=== PATIENT | male | born 1995 | race Caucasian/White ===

== ENCOUNTER 2018-01-10 20:27 | Emergency (ER) | payer OTHER ==
[2018-01-10 20:33] VITALS: RESP 18
--- NOTE | 2018-01-10 21:30 | EDPHY ---
H & P Time Seen by Provider: 01/10/18 20:55 HPI/ROS: CHIEF COMPLAINT: Abscess HISTORY OF PRESENT ILLNESS: 22-year-old male presents to the emergency department with drainage from a wound in the upper part of his buttock. Patient states that he fell snowboarding 2 days ago and since that time has developed some drainage. The patient denies any problems with urination. Denies any issues with bowel movements. No fevers or chills. No abdominal pain. He has never had this in the past. ROS: No fevers, chills, abdominal pain. Past Medical/Surgical History: Negative Social History: Single Smoking Status: Never smoked Physical Exam: On examination the patient is afebrile. No apparent distress. On examination the patient has evidence of pilonidal cyst. There is a small opening where purulent drainage was expressed. No sounding redness or signs of cellulitis. Minimally tender to palpate. No palpable bony tenderness. Constitutional: Initial Vital Signs Temperature (C) 36.7 C 01/10/18 20:30 Heart Rate 87 01/10/18 20:30 Respiratory Rate 18 01/10/18 20:30 Blood Pressure 141/77 H 01/10/18 20:30 O2 Sat (%) 96 01/10/18 20:30 O2 Delivery Mode Room Air Allergies/Adverse Reactions: No Known Allergies Allergy (Unverified 01/10/18 20:30) Home Medications: Medication Instructions Recorded Cephalexin [Keflex] 500 mg PO QID #28 cap 01/10/18 MDM/Departure - MDM Procedures: Procedure: Abscess drainage. The patient's abscess was located on the buttock. Risks, benefits, alternatives discussed with the patient and consent obtained. The abscess was already draining and just required some palpation to express further purulent drainage. No packing required. The patient tolerated the procedure well. The procedure was performed by myself. ED Course/Re-evaluation: 22-year-old male presents with pilonidal cyst. Purulent drainage expressed. Patient will be started on Keflex. He was encouraged and soak the area. Packing was not placed. - Depart Disposition: Home, Routine, Self-Care Clinical Impression: Pilonidal cyst with abscess Condition: Good Instructions: Pilonidal Cyst (ED) Additional Instructions: Keflex 500 mg 4 times daily for 1 week. Soak area in warm water as discussed for 15-20 minutes every 2-3 hours especially today and tomorrow. Apply antibiotic ointment such as Neosporin or bacitracin. Return to the emergency department if you develop a fever, increasing pain, or any other concerns. Prescriptions: Cephalexin [Keflex] 500 mg PO QID #28 cap Referrals: Prabhjot Kemp MD [Medical Doctor] - 5-7 days, call for appt. (General surgeon on-call)
[2018-01-10] MEDS ORDERED: CEPHALEXIN 500MG PREPACK#4 BTL TAKEHOME ONE (21:32)
[2018-01-10 21:42] VITALS: BP 122/72; PULSE 84; TEMP 99; O2SAT 94
== END 2018-01-10 21:47 | disposition home or self-care (01) ==
DX: L05.01 Pilonidal cyst with abscess (principal)